=== PATIENT | female | born 1950 | race Caucasian/White ===

== ENCOUNTER 2018-06-13 21:57 | Observation (INO) ==
[2018-06-13] MEDS ORDERED: MethylPREDNISolone Sod Succinate Inj 125 MG/2 ML Vial IV.PUSH ONE (22:11)
--- NOTE | 2018-06-13 22:19 | ED ---
HPI General Chief Complaint: Asthma Stated Complaint: Asthma Attack x today Time Seen by Provider: 06/13/18 22:10 Source: patient Mode of arrival: ambulatory Limitations: no limitations History of Present Illness MD complaint: Reports "asthma attack" Onset (ago): hour(s) (this morning) Severity: moderate Context: Reports other (cough and fever) Associated symptoms: Reports dry cough and fever Treatments Prior to Arrival: Reports inhaled bronchodilator Related Data Current Asthma Therapy: inhaled bronchodilator Home Medications Medication Instructions Recorded Confirmed Singulair 10 mg PO DAILY 06/14/18 06/14/18 albuterol sulfate [Ventolin HFA] 2 puff INHALATION Q4-6H PRN 06/14/18 06/14/18 metoprolol tartrate 50 mg PO BID 06/14/18 06/14/18 Allergies Allergy/AdvReac Type Severity Reaction Status Date / Time No Known Allergies Allergy Verified 06/13/18 22:03 Review of Systems ROS: all other systems reviewed are negative [facility] Medical History Medical History History of high blood pressure (Acute) Hx of diverticulitis of colon (Acute) Hx of status asthmaticus (Acute) Surgical History Surgical History No history of previous surgery (Acute) Social History Social History Substance History: No History of Abuse Second Hand Smoke Exposure: No Smoking Status: Never smoker How Often Do You Have a Drink Containing Alcohol: Never Recent Travel in [facility] within the Last 8 Weeks: No Recent Out of Country Travel within the Last 8 Weeks: No Immunization History Tetanus Immunization: Unsure Exam Const General: cooperative, healthy appearing and comfortable Orientation: alert, awake and oriented x3 HENMT Head: normal to inspection, normocephalic and atraumatic Eyes General: appearance normal, both eyes and all related structures Conjunctivae: conjunctivae normal Sclera: sclerae normal EOM: EOM intact bilaterally Neck Neck: normal visual inspection and full ROM Chest Chest: normal inspection of the chest Resp Effort & Inspection: cough and labored Auscultation: diminished lung sounds and wheezes Cardio Rate: regular rate Rhythm: regular rhythm GI Inspection: normal to inspection Palpation: soft Back/Spine/Pelvis Cervical Spine: cervical ROM normal Thoracic/Lumbar Spine: thoraco-lumbar ROM normal Skin General: no rashes or lesions noted, turgor normal and dry skin Neuro General: alert, awake, oriented x3, moves all extremities and CN's II-XI intact bilaterally Extrem General: normal to inspection, full ROM and no pedal edema Psych Appearance: grossly normal Mental Status: mental status grossly normal Speech and Movement: speech and movement normal Mood: congruent mood Affect: normal affect Attitude: cooperative Thought Process: normal Thought Content: normal Judgment: judgment good Course Reevaluation(s) Reevaluation #1: Following 3 nebs and Solu-Medrol, her breathing is improved although she continues to have an asthmatic cough. Her aeration is better. She continues to have some expiratory wheezing. I have ordered 3 more nebs. Time: 23:46 Initial Documented Vital Signs Temperature 97.9 F 06/13/18 22:00 Pulse Rate 99 H 06/13/18 22:00 Respiratory Rate 24 06/13/18 22:00 Blood Pressure 199/91 H 06/13/18 22:00 Pulse Oximetry 97 06/13/18 22:00 Last Documented Vital Signs Temperature 96.6 F L 06/14/18 12:00 Pulse Rate 71 06/14/18 15:07 Respiratory Rate 18 06/14/18 15:07 Blood Pressure 147/68 H 06/14/18 12:00 Pulse Oximetry 98 06/14/18 12:00 Critical Care Time Critical Care Time: Yes Total Critical Care Time: 45 Attestation: Time to perform other separately billable procedures was not included in the critical care time. My time did not include minutes spent treating any other patients simultaneously or on activities that did not directly contribute to the patient's treatment. The services I provided to this patient were to treat and/or prevent clinically significant deterioration due to respiratory distress I provided critical care services requiring my management, as noted below: Chart data review, documentation time, medication orders and management, vital sign assessments/reviewing monitor data, ordering and reviewing lab tests, ordering and interpreting/reviewing x-rays and diagnostic studies, care of the patient and discussion of the patient with the admitting physicians Medical Decision Making MDM Narrative Medical decision making narrative: This is a patient with a history of asthma who presents with a 1 day history of wheezing. She also reports a fever and a cough. She states that she feels like she has congestion in her chest that she needs to cough up but she cannot get it out. She reports that she has used her nebulizer machine, her MDI and her Singulair without relief. She states that she has used her MDI times today. On exam, she is in moderate respiratory distress. Breath sounds are diminished with inspiratory and expiratory wheezing. She will be treated initially with stacked duo nebs and Solu-Medrol. Chest x-ray, etc. are in process to rule out pneumonia/sepsis. Accepted in transfer of care from Dr. Diaz for follow-up of pending repeat lactic acid as first lactic acid was mildly elevated at 2.1. Patient had received a liter of fluid and on repeat lactic acid elevated at 2.6; patient continued to have ongoing bronchospasm therefore patient's case was discussed with medicine service with Dr. Aguilera who will admit to observation Medical Screen Exam Complete: Yes Emergency Medical Condition: Yes Lab Data Lab results reviewed: Yes I reviewed the patient's lab results. Result diagrams: 06/13/18 22:10 06/13/18 22:10 Lab Results 06/13/18 06/13/18 06/13/18 Range/Units 22:10 22:10 22:10 CBC w Diff Auto diff final WBC 8.4 (4.0-11.0) th/mm3 RBC 4.22 (4.00-5.30) mil/mm3 Hgb 14.0 (11.6-15.3) gm/dL Hct 41.4 (35.0-46.0) % MCV 98.0 (80.0-100.0) fL MCH 33.2 (27.0-34.0) pg MCHC 33.9 (32.0-36.0) % RDW 13.4 (11.6-17.2) % Plt Count 285 (150-450) th/mm3 MPV 8.0 (7.0-11.0) fL Neut % (Auto) 81.2 H (16.0-70.0) % Lymph % (Auto) 12.7 (9.0-44.0) % Stephenson % (Auto) 4.9 (0.0-8.0) % Eos % (Auto) 0.7 (0.0-4.0) % Baso % (Auto) 0.5 (0.0-2.0) % Neut # (Auto) 6.8 (1.8-7.7) th/mm3 Lymph # (Auto) 1.1 (1.0-4.8) th/mm3 Stephenson # (Auto) 0.4 (0.0-0.9) th/mm3 Eos # (Auto) 0.1 (0.0-0.4) th/mm3 Baso # (Auto) 0.0 (0.0-0.2) th/mm3 WBC Differential . Differential Comment . Sodium 141 (136-145) meq/L Potassium 4.2 (3.5-5.1) meq/L Chloride 106 (98-107) meq/L Carbon Dioxide 27.0 (21.0-32.0) meq/L Anion Gap 8 (5-15) meq/L BUN 10 (7-18) mg/dL Creatinine 0.69 (0.50-1.00) mg/dL Estimated GFR 85 L (>89) mL/min Random Glucose 121 H (74-106) mg/dL Lactic Acid 2.1 H (0.4-2.0) mmol/L Calcium 8.8 (8.5-10.1) mg/dL B-Natriuretic Peptide (0-100) pg/mL 06/14/18 06/14/18 06/14/18 Range/Units 00:25 09:55 09:55 CBC w Diff WBC (4.0-11.0) th/mm3 RBC (4.00-5.30) mil/mm3 Hgb (11.6-15.3) gm/dL Hct (35.0-46.0) % MCV (80.0-100.0) fL MCH (27.0-34.0) pg MCHC (32.0-36.0) % RDW (11.6-17.2) % Plt Count (150-450) th/mm3 MPV (7.0-11.0) fL Neut % (Auto) (16.0-70.0) % Lymph % (Auto) (9.0-44.0) % Stephenson % (Auto) (0.0-8.0) % Eos % (Auto) (0.0-4.0) % Baso % (Auto) (0.0-2.0) % Neut # (Auto) (1.8-7.7) th/mm3 Lymph # (Auto) (1.0-4.8) th/mm3 Stephenson # (Auto) (0.0-0.9) th/mm3 Eos # (Auto) (0.0-0.4) th/mm3 Baso # (Auto) (0.0-0.2) th/mm3 WBC Differential Differential Comment Sodium (136-145) meq/L Potassium (3.5-5.1) meq/L Chloride (98-107) meq/L Carbon Dioxide (21.0-32.0) meq/L Anion Gap (5-15) meq/L BUN (7-18) mg/dL Creatinine (0.50-1.00) mg/dL Estimated GFR (>89) mL/min Random Glucose (74-106) mg/dL Lactic Acid 2.6 H 4.4 H* (0.4-2.0) mmol/L Calcium (8.5-10.1) mg/dL B-Natriuretic Peptide 79 (0-100) pg/mL Imaging Data Attestation: I personally reviewed and interpreted this imaging study as follows : My impression: Chest x-ray to my interpretation is negative for infiltrate Radiologist's impression: Chest X-Ray 06/13/18 22:14 CONCLUSION: Cardiomegaly and findings of vascular congestion without overt failure. Discharge Plan Discharge Disposition Patient Disposition: 30 Still Patient Discharge Condition Condition: Stable Discharge Details Diagnosis: Acute asthmatic bronchitis Physicians Team ED Provider: Kalani Diaz Attending Provider: Dm Rust ED Status: Left Department Discharge Information Discharge Date/Time: 06/14/18 02:50
[2018-06-13 22:32] LABS: Baso % (Auto) 0.5 % (0.0-2.0); Eos # (Auto) 0.1 th/mm3 (0.0-0.4); Eos % (Auto) 0.7 % (0.0-4.0); Hematocrit 41.4 % (35.0-46.0); Lymph # (Auto) 1.1 th/mm3 (1.0-4.8); Lymph % (Auto) 12.7 % (9.0-44.0); Mean Corpuscular HGB Conc 33.9 % (32.0-36.0); Mean Corpuscular Hemoglobin 33.2 pg (27.0-34.0); Mono # (Auto) 0.4 th/mm3 (0.0-0.9); Mono % (Auto) 4.9 % (0.0-8.0); Neut # (Auto) 6.8 th/mm3 (1.8-7.7); Neut % (Auto) 81.2 % (16.0-70.0); Platelet Count 285 th/mm3 (150-450); Red Blood Count 4.22 mil/mm3 (4.00-5.30); Red Cell Distribution Width 13.4 % (11.6-17.2); White Blood Count 8.4 th/mm3 (4.0-11.0)
[2018-06-13 22:38] LABS: Potassium 4.2 meq/L (3.5-5.1)
[2018-06-13 22:41] LABS: Calcium 8.8 mg/dL (8.5-10.1)
[2018-06-13] MEDS ORDERED: Azithromycin Inj 500 MG in Sodium Chlor 0.9% Inj 250 ML IV.SIG ONE (22:43)
[2018-06-13] MEDS ORDERED: Acetaminophen 325 MG Tablet PO ONE (22:50)
[2018-06-13] MEDS ORDERED: Sod Chloride 0.9% Inj 1,000 ML IV.SIG SCH (23:00)
--- NOTE | 2018-06-13 23:53 | XR ---
EXAM DATE: 06/13/2018 11:48 PM EDT AGE/SEX: 67 years / Female INDICATIONS: . Shortness of breath with cough and chest pain for almost 2 weeks. CLINICAL DATA: This is the patient's initial encounter. Patient reports that signs and symptoms have been present for 2 weeks and indicates a pain score of 4/10. MEDICAL/SURGICAL HISTORY: . Asthma Hypertension Diverticulitis None. COMPARISON: No prior exams available for comparison. FINDINGS: The cardiac silhouette is enlarged in transverse diameter. There is prominence of the central pulmona ry vasculature with indistinct vascular margins compatible with vascular congestion but no evidence o f overt failure. There is multilevel degenerative change throughout the spine. CONCLUSION: Cardiomegaly and findings of vascular congestion without overt failure. Electronically signed by: Vinh Malone MD 06/13/2018 11:51 PM EDT
[2018-06-14] MEDS ORDERED: Bisacodyl 10 MG Supp RECTAL PRN (01:18)
[2018-06-14] MEDS ORDERED: Sod Chloride 0.9% Inj 1,000 ML IV.CONT SCH (01:30)
[2018-06-14] MEDS: MethylPREDNISolone Sod Succinate Inj 40 MG/ML Vial IV.PUSH SCH ×4 (02:04→21:59)
[2018-06-14] MEDS ORDERED: Sodium Chloride 0.9% 2 ML Flush PRN IV.FLUSH (03:48)
[2018-06-14] MEDS: guaiFENesin/Codeine Syrup 200 MG/20 MG 10 ML UDC PO PRN ×3 (03:56→22:03)
--- NOTE | 2018-06-14 08:21 | P.HP ---
History of Present Illness Primary Care Physician: Maicol Rossi Chief Complaint: Shortness of breath History of Present Illness: This is a pleasant 67-year-old female patient with a known medical history of asthma and hypertension who presented to the ED with complaints of worsening shortness of breath. Patient states she was recently hospitalized in mid April for 2 weeks for diagnosis of pneumonia and asthma exacerbation, at that time she was given antibiotics and steroids and sent home. Since that time of discharge until now she has been having worsening shortness of breath, states that she developed a head cold as well as a nonproductive cough. States that her shortness of breath is worse with activity and movement. She has been using her nebulizer inhaler more often without effect. Patient has finished a course of azithromycin and prednisone since discharge which has not helped with her symptoms. She states that she is checked her blood pressure has been elevated with systolic in the 180s. She takes metoprolol at home without improvement in her blood pressure. She denies any recent fever, chills, pain, abdominal pain, nausea, vomiting, diarrhea or dysuria. Upon assessment today, wheezing is much improved, with some expiratory wheezing in the posterior lobes , chest x-ray showing some congestion. - Diagnosis (1) Acute asthmatic bronchitis Review of Systems All other systems reviewed negative except as stated in HPI PMFSH - History History Provided By: Patient - Medical History Medical History: Medical History (Last Reviewed 06/14/18 @ 08:27 by Jenny Yu) History of high blood pressure Hx of diverticulitis of colon Hx of status asthmaticus - Surgical History Surgical History: Surgical History (Last Reviewed 06/14/18 @ 08:27 by Jenny Yu) No history of previous surgery - Family History Family History: Family History (Last Reviewed 06/14/18 @ 08:27 by Jenny Yu) Other Family history non-contributory - Social History I have reviewed the patient's Social History: Yes - Tobacco History Second Hand Smoke Exposure: No Smoking Status: Never smoker - Alcohol History How Often Do You Have a Drink Containing Alcohol: Never - Substance Use History Substance History: No History of Abuse - Travel History Recent Travel in the [place] Within the Last 8 Weeks: No Recent Travel Out of the Country Within the Last 8 Weeks: No - Immunization History Tetanus Immunization: Unsure Medications and Allergies Active Medications: Active Medications Acetaminophen (Tylenol) 650 mg PO Q4H PRN PRN Reason: Temp > 100.4 Al Hydroxide/Mg Hydroxide (Milk Of Magnesia Liq) 30 ml PO Q12H PRN PRN Reason: Mild Constipation Albuterol (Albuterol Neb (Prn)) 2.5 mg NEB Q2HR NEB PRN PRN Reason: SOB/WHEEZING Albuterol (Albuterol Neb (Freedom)) 2.5 mg NEB Q6HR NEB [facility] Amoxicillin/Clavulanate Potassium (Augmentin 875/125 Mg) 1 tab PO Q12HR [facility] Bisacodyl (Dulcolax Supp) 10 mg RECTAL DAILY PRN PRN Reason: SEVERE CONSITIPATION Budesonide/Formoterol Fumarate (Symbicort 160/4.5 Mcg Inh) 2 puff INH BID [facility] Furosemide (Lasix Inj) 20 mg IV.PUSH DAILY [facility] Guaifenesin (Mucinex Er) 600 mg PO BID [facility] Guaifenesin/Codeine Phosphate (Robitussin Ac 200/20 Mg/10 Ml Liq) 10 ml PO Q6H PRN PRN Reason: cough interfering with rest Last Admin: 06/14/18 03:56 Dose: 10 ml Lactulose (Lactulose Liq) 30 ml PO DAILY PRN PRN Reason: SEVERE CONSITIPATION Lisinopril (Prinivil) 5 mg PO DAILY [facility] Methylprednisolone Sodium Succinate (Solumedrol Inj) 40 mg IV.PUSH Q6H [facility] Last Admin: 06/14/18 02:04 Dose: 40 mg Non-Formulary Medication (Metoprolol Tartrate) 50 mg PO BID [facility] Ondansetron HCl (Zofran Inj) 4 mg IV.PUSH Q6H PRN PRN Reason: NAUSEA OR VOMITING Senna/Docusate Sodium (Soni-Colace) 1 tab PO BID [facility] Sennosides (Senokot) 17.2 mg PO Q12H PRN PRN Reason: Moderate Constipation Sodium Chloride (Ns Flush) 2 ml IV.FLUSH BID [facility] Sodium Chloride (Ns Flush) 2 ml IV.FLUSH PRN PRN PRN Reason: FLUSH AFTER USING IV ACCESS Allergies Allergy/AdvReac Type Severity Reaction Status Date / Time No Known Allergies Allergy Verified 06/13/18 22:03 Home Medications Medication Instructions Recorded Confirmed Type Singulair 06/14/18 History albuterol sulfate [Ventolin HFA] 2 puff INHALATION Q4-6H PRN 06/14/18 06/14/18 History metoprolol tartrate 50 mg PO BID 06/14/18 06/14/18 History Exam Vital signs: Vital Signs 06/13/18 22:00 06/13/18 22:15 06/13/18 22:30 Temperature 97.9 F Pulse Rate 99 H 98 H 85 Respiratory Rate 24 22 Blood Pressure 199/91 H Pulse Oximetry 97 97 06/13/18 22:45 06/13/18 22:55 06/13/18 23:52 Temperature Pulse Rate 85 98 H 98 H Respiratory Rate 22 22 18 Blood Pressure 141/69 H Pulse Oximetry 96 06/14/18 02:23 06/14/18 03:30 06/14/18 07:43 Temperature 98.2 F Pulse Rate 96 H 96 H 65 Respiratory Rate 18 20 20 Blood Pressure 145/74 H 183/76 H Pulse Oximetry 96 95 Intake & Output 06/13/18 06/14/18 06/14/18 18:59 06:59 18:59 Intake Total 1310 / 1310 Balance 1310 / 1310 Weight 89.7 kg Intake: IV 1250 / 1250 Azithromycin Inj 500 MG In NS 250 / 250 Inj 250 ML @ 250 mls/hr IV.SIG ONCE ONE Rx#:[id number] NS Inj 1,000 ML @ 1000 mls/hr 1000 / 1000 IV.SIG BOLUS FREEDOM Rx#:[id number] Oral 60 / 60 Narrative: GENERAL: Well-developed, well-nourished patient in NAD. On RA. SKIN: Warm and dry. No rash. HEAD: Normocephalic. Atraumatic. EYES: Pupils equal and round. No scleral icterus. No injection or drainage. ENT: No nasal bleeding or discharge. Mucous membranes pink and moist. NECK: Supple. Trachea midline. CARDIOVASCULAR: Regular rate and rhythm. S1, S2 noted. No murmur appreciated. RESPIRATORY: No accessory muscle use. Diffuse expiratory wheezing posterior lobe. Breath sounds equal bilaterally. GASTROINTESTINAL: Abdomen soft, non-tender, nondistended. Normoactive bowel sounds x4. MUSCULOSKELETAL: No obvious deformities. Extremities without clubbing, cyanosis. Bilateral lower extremity edema, 1. NEUROLOGICAL: Awake and alert. No obvious cranial nerve deficits. Motor grossly within normal limits. 5/5 muscle strength in bilateral upper and lower extremities. Normal speech. PSYCHIATRIC: Appropriate mood and affect; insight and judgment normal. Results - Labs CBC & Chem 7: 06/13/18 22:10 06/13/18 22:10 Labs: Laboratory Results - last 24 hr 06/13/18 06/13/18 06/13/18 22:10 22:10 22:10 CBC w Diff Auto diff final WBC 8.4 RBC 4.22 Hgb 14.0 Hct 41.4 MCV 98.0 MCH 33.2 MCHC 33.9 RDW 13.4 Plt Count 285 MPV 8.0 Neut % (Auto) 81.2 H Lymph % (Auto) 12.7 Mchenry % (Auto) 4.9 Eos % (Auto) 0.7 Baso % (Auto) 0.5 Neut # (Auto) 6.8 Lymph # (Auto) 1.1 Mchenry # (Auto) 0.4 Eos # (Auto) 0.1 Baso # (Auto) 0.0 WBC Differential . Differential Comment . Sodium 141 Potassium 4.2 Chloride 106 Carbon Dioxide 27.0 Anion Gap 8 BUN 10 Creatinine 0.69 Estimated GFR 85 L Random Glucose 121 H Lactic Acid 2.1 H Calcium 8.8 06/14/18 00:25 CBC w Diff WBC RBC Hgb Hct MCV MCH MCHC RDW Plt Count MPV Neut % (Auto) Lymph % (Auto) Mchenry % (Auto) Eos % (Auto) Baso % (Auto) Neut # (Auto) Lymph # (Auto) Mchenry # (Auto) Eos # (Auto) Baso # (Auto) WBC Differential Differential Comment Sodium Potassium Chloride Carbon Dioxide Anion Gap BUN Creatinine Estimated GFR Random Glucose Lactic Acid 2.6 H Calcium - Imaging Impressions Chest X-Ray 06/13/18 22:14 CONCLUSION: Cardiomegaly and findings of vascular congestion without overt failure. Caprini VTE Risk Assessment Caprini VTE Risk Assessment: Moderate/High Risk (score >= 2) Caprini Risk Assessment Model: Point Value = 1 Point Value = 2 Point Value = 3 Point Value = 5 Age 41-60 Minor surgery BMI > 25 kg/m2 Swollen legs Varicose veins or History of unexplained or recurrent spontaneous Oral contraceptives or hormone replacement Sepsis (< 1 month) Serious lung disease, including pneumonia (< 1 month) Abnormal pulmonary function Acute myocardial infarction Congestive heart failure (< 1 month) History of inflammatory bowel disease Medical patient at bed rest Age 61-74 Arthroscopic surgery Major open surgery (> 45 min) Laparoscopic surgery (> 45 min) Malignancy Confined to bed (> 72 hours) Immobilizing plaster cast Central venous access Age >= 75 History of VTE Family history of VTE Factor V Leiden Prothrombin [id number] Lupus anticoagulant Anticardiolipin antibodies Elevated serum homocysteine Heparin-induced thrombocytopenia Other congenital or acquired thrombophilia Stroke (< 1 month) Elective arthroplasty Hip, pelvis, or leg fracture Acute spinal cord injury (< 1 month) Prophylaxis Regimen: Total Risk Factor Score Risk Level Prophylaxis Regimen 0-1 Low Early ambulation 2 Moderate Order ONE of the following: *Sequential Compression Device (SCD) *Heparin 5000 units SQ BID 3-4 Higher Order ONE of the following medications: *Heparin 5000 units SQ TID *Enoxaparin/Lovenox 40 mg SQ daily (WT < 150 kg, CrCl > 30 mL/min) *Enoxaparin/Lovenox 30 mg SQ daily (WT < 150 kg, CrCl > 10-29 mL/min) *Enoxaparin/Lovenox 30 mg SQ BID (WT < 150 kg, CrCl > 30 mL/min) AND/OR *Sequential Compression Device (SCD) 5 or more Highest Order ONE of the following medications: *Heparin 5000 units SQ TID (Preferred with Epidurals) *Enoxaparin/Lovenox 40 mg SQ daily (WT < 150 kg, CrCl > 30 mL/min) *Enoxaparin/Lovenox 30 mg SQ daily (WT < 150 kg, CrCl > 10-29 mL/min) *Enoxaparin/Lovenox 30 mg SQ BID (WT < 150 kg, CrCl > 30 mL/min) AND *Sequential Compression Device (SCD) Assessment and Plan - Assessment (1) Acute asthmatic bronchitis Code(s): J45.909 - Unspecified asthma, uncomplicated Status: Acute - Plan This is a 67-year-old female patient with: Acute asthma exacerbation -Previous hospitalization with pneumonia, was discharged mid-April. Recently finished Z-mary jo and steroid taper. No leukocytosis, afebrile. -Patient complains of 2 weeks worsening shortness of breath and audible wheezing. -Was given IV steroids in ED. Will continue scheduled steroids for now. -Started on Augmentin. Continue. -Duo nebs scheduled and as needed for shortness of breath/wheezing. -Still complaints of dry cough and congestion. Continue Robitussin and Mucinex. -Supplemental O2 as needed, patient comfortable on RA. -Supportive care. Bilateral lower extremity edema Hypertension, chronic -Chest x-ray showing some congestion. Will DC IV fluid. Give 1 dose of Lasix. Monitor intake and output closely. Will add BNP to labs. -Patient restarted on metoprolol from home. Added lisinopril. Monitor blood pressure trends. DVT prophylaxis: SCDs. Ambulation.
[2018-06-14] MEDS: Senna/Docusate Sodium 8.6/50 MG Tablet PO SCH ×2 (09:03→21:59)
[2018-06-14] MEDS: Amoxicillin/Clavulanate 875/125 MG Tablet PO SCH ×2 (09:03→21:59)
[2018-06-14] MEDS: Lisinopril 5 MG Tablet PO SCH (09:04)
[2018-06-14] MEDS: Metoprolol Tartrate 50 MG Tablet PO SCH ×2 (09:04→22:00)
[2018-06-14] MEDS: guaiFENesin 600 MG ER Tablet PO SCH ×2 (09:04→21:59)
[2018-06-14] MEDS: Sodium Chloride 0.9% 2 ML Flush BID IV.FLUSH SCH ×2 (09:05→20:14)
[2018-06-14] MEDS: Budesonide-Formoterol 160/4.5 MCG 6 GM Inhaler INH SCH ×2 (09:07→22:00)
[2018-06-14] MEDS: Acetaminophen 325 MG Tablet PO PRN (12:19)
[2018-06-14] MEDS ORDERED: Ibuprofen 400 MG Tablet PO PRN (13:44)
[2018-06-14] MEDS ORDERED: Ibuprofen 400 MG Tablet PO ONE (14:00)
[2018-06-15] MEDS: Acetaminophen 325 MG Tablet PO PRN (00:55)
[2018-06-15] MEDS: MethylPREDNISolone Sod Succinate Inj 40 MG/ML Vial IV.PUSH SCH ×2 (01:50→08:19)
--- NOTE | 2018-06-15 07:40 | P.PNIM ---
Subjective Interval history: Follow-up asthma exacerbation and sinus congestion. Patient seen and examined sitting in bed comfortably on room air in no apparent distress. She states she feels much improved her breathing is improved. No audible wheezing noted. She is on room air comfortably. Vital signs stable. She does state that she feels some sinus congestion as well as cough. She does have some pain in her chest with coughing and increased movement. Encourage supportive care. Continue NSAIDs as well as steroids and antibiotics. Patient has close follow-up with PCP. Will be discharged home to follow-up. Physical Exam Vital signs: Vital Signs 06/14/18 07:43 06/14/18 08:00 06/14/18 12:00 Temperature 96.7 F L 96.6 F L Pulse Rate 65 71 69 Respiratory Rate 20 18 18 Blood Pressure 147/62 H 147/68 H Pulse Oximetry 94 L 98 06/14/18 12:49 06/14/18 15:07 06/14/18 16:00 Temperature 96.1 F L Pulse Rate 71 73 Respiratory Rate 18 18 18 Blood Pressure 143/69 H Pulse Oximetry 96 06/14/18 17:01 06/14/18 19:50 06/14/18 20:00 Temperature 96.3 F L Pulse Rate 79 82 Respiratory Rate 18 18 18 Blood Pressure 138/67 Pulse Oximetry 97 06/15/18 00:00 06/15/18 07:21 Temperature 96.3 F L Pulse Rate 70 80 Respiratory Rate 18 20 Blood Pressure 139/73 Pulse Oximetry 97 Intake & Output 06/14/18 06/15/18 06/15/18 18:59 06:59 18:59 Intake Total 300 / 300 1240 / 1240 Balance 300 / 300 1240 / 1240 Weight 89.4 kg Intake: IV 1000 / 1000 NS Inj 1,000 ML @ 100 mls/hr IV 1000 / 1000 .CONT .Q10H ANTONIO Rx#:[id number] Oral 300 / 300 240 / 240 Other: # Voids 1 2 Narrative: GENERAL: Well-developed, well-nourished patient in NAD. On RA. SKIN: Warm and dry. No rash. HEAD: Normocephalic. Atraumatic. EYES: Pupils equal and round. No scleral icterus. No injection or drainage. ENT: No nasal bleeding or discharge. Mucous membranes pink and moist. NECK: Supple. Trachea midline. CARDIOVASCULAR: Regular rate and rhythm. S1, S2 noted. No murmur appreciated. RESPIRATORY: No accessory muscle use. Clear to auscultation. Breath sounds equal bilaterally. GASTROINTESTINAL: Abdomen soft, non-tender, nondistended. Normoactive bowel sounds x4. MUSCULOSKELETAL: No obvious deformities. Extremities without clubbing, cyanosis. Edema improved. NEUROLOGICAL: Awake and alert. No obvious cranial nerve deficits. Motor grossly within normal limits. 5/5 muscle strength in bilateral upper and lower extremities. Normal speech. PSYCHIATRIC: Appropriate mood and affect; insight and judgment normal. Results - Labs CBC & Chem 7: 06/15/18 07:37 06/15/18 07:37 Laboratory Results - last 24 hr 06/14/18 06/14/18 09:55 09:55 Lactic Acid 4.4 H* B-Natriuretic Peptide 79 Microbiology 06/13/18 22:10 Blood - Peripheral Aerobic Blood Culture - Preliminary No growth in 1 day 06/13/18 22:10 Blood - Peripheral Anaerobic Blood Culture - Preliminary No growth in 1 day 06/13/18 22:10 Blood - Peripheral Aerobic Blood Culture - Preliminary No growth in 1 day 06/13/18 22:10 Blood - Peripheral Anaerobic Blood Culture - Preliminary No growth in 1 day Assessment and Plan - Assessment (1) Acute asthmatic bronchitis Code(s): J45.909 - Unspecified asthma, uncomplicated Status: Acute - Plan This is a 67-year-old female patient with: Acute asthma exacerbation. Improved. -Previous hospitalization with pneumonia, was discharged mid-April. Recently finished Z-mary jo and steroid taper. No leukocytosis, afebrile. -Patient complains of 2 weeks worsening shortness of breath and audible wheezing. -Was given IV steroids in ED. to need on IV steroids during hospitalization. Will continue with p.o. steroids upon discharge. -Started on Augmentin. Continue. -Duo nebs scheduled and as needed for shortness of breath/wheezing. Prescription written for duo nebs outpatient. -Still complaints of dry cough and congestion. Continue Robitussin and Mucinex. Prescription written. -Supplemental O2 as needed, patient comfortable on RA. -Supportive care. Bilateral lower extremity edema. Resolved. Hypertension, chronic -Chest x-ray showing some congestion. Will DC IV fluid. Give 1 dose of Lasix. Did well with Lasix, diuresed well. -Patient restarted on metoprolol from home. Added lisinopril. Monitor blood pressure trends. DVT prophylaxis: SCDs. Ambulation. DC home. Activity as tolerated. Heart healthy diet as tolerated. Follow-up PCP. Prescriptions as ordered. Stable for discharge.
[2018-06-15 08:11] LABS: Baso % (Auto) 0.2 % (0.0-2.0); Eos % (Auto) 0.1 % (0.0-4.0); Hematocrit 37.8 % (35.0-46.0); Hemoglobin 12.6 gm/dL (11.6-15.3); Lymph # (Auto) 1.1 th/mm3 (1.0-4.8); Lymph % (Auto) 8.2 % (9.0-44.0); Mean Corpuscular HGB Conc 33.4 % (32.0-36.0); Mean Corpuscular Hemoglobin 32.4 pg (27.0-34.0); Mean Corpuscular Volume 96.9 fL (80.0-100.0); Mean Platelet Volume 8.4 fL (7.0-11.0); Mono # (Auto) 0.4 th/mm3 (0.0-0.9); Mono % (Auto) 2.7 % (0.0-8.0); Neut # (Auto) 12.4 th/mm3 (1.8-7.7); Neut % (Auto) 88.8 % (16.0-70.0); Platelet Count 254 th/mm3 (150-450); White Blood Count 13.9 th/mm3 (4.0-11.0)
[2018-06-15] MEDS: Amoxicillin/Clavulanate 875/125 MG Tablet PO SCH (08:18)
[2018-06-15] MEDS: Sodium Chloride 0.9% 2 ML Flush BID IV.FLUSH SCH (08:19)
[2018-06-15] MEDS: guaiFENesin 600 MG ER Tablet PO SCH (08:19)
[2018-06-15] MEDS: Metoprolol Tartrate 50 MG Tablet PO SCH (08:19)
[2018-06-15] MEDS: Senna/Docusate Sodium 8.6/50 MG Tablet PO SCH (08:19)
[2018-06-15] MEDS: Lisinopril 5 MG Tablet PO SCH (08:19)
[2018-06-15 08:21] LABS: Chloride 109 meq/L (98-107); Potassium 4.7 meq/L (3.5-5.1); Sodium 144 meq/L (136-145)
[2018-06-15 08:26] LABS: Albumin 3.4 g/dL (3.4-5.0); Anion Gap 8 meq/L (5-15); Blood Urea Nitrogen 11 mg/dL (7-18); Carbon Dioxide 26.9 meq/L (21.0-32.0); Glucose,Random 135 mg/dL (74-106)
[2018-06-15] MEDS: guaiFENesin/Codeine Syrup 200 MG/20 MG 10 ML UDC PO PRN (08:28)
[2018-06-15 08:29] LABS: Alanine Aminotransferase 19 U/L (10-53); Aspartate Aminotransferase 10 U/L (15-37); Glomerular Filtration Rate Greater Than 89 mL/min (>89)
[2018-06-15 08:30] LABS: Total Protein 6.6 g/dL (6.4-8.2)
[2018-06-15 08:32] LABS: Alkaline Phosphatase 50 U/L (45-117)
[2018-06-15] MEDS: Budesonide-Formoterol 160/4.5 MCG 6 GM Inhaler INH SCH (08:36)
[2018-06-15 08:39] VITALS: RESP 18; TEMP 97.6
[2018-06-15 10:47] VITALS: BP 125/60; PULSE 74; O2SAT 93
== END 2018-06-15 12:08 | disposition home or self-care (01) ==
LOC: PHED 21:57 → PHEDA 21:57 → PH3 06-14 02:43
PROVIDERS: ADMIT Internal Medicine; ATTEND Internal Medicine